=== PATIENT | female | born 1980 | race Caucasian/White ===

== ENCOUNTER 2018-05-06 01:50 | Inpatient (IN) | payer OTHER ==
[2018-05-06] MEDS ORDERED: ACETAMINOPHEN 325 MG TAB PO (04:00)
[2018-05-06] MEDS: SOD CHLORIDE 0.9% 1,000 ML IV (04:20)
[2018-05-06] MEDS: PANTOPRAZOLE (EC) 40 MG TAB PO (05:22)
[2018-05-06 05:42] LABS: ADD MAN DIFF? NO
[2018-05-06 05:51] LABS: ABNORMAL IP MESSAGE 1; BASOPHIL # 0.1 10^3/ul (0.0-0.1); BASOPHILS % 0.6 % (0.0-2.0); EOSINOPHILS # 0.3 10^3/ul (0.0-0.5); EOSINOPHILS % 3.4 % (0.0-7.0); HEMATOCRIT 25.1 % (37.0-47.0); HEMOGLOBIN 7.2 g/dl (12.0-16.0); LYMPHOCYTES # 3.3 10^3/ul (0.8-2.9); LYMPHOCYTES % 38.9 % (15.0-51.0); MEAN CORPUSCULAR HEMOGLOBIN 19.2 pg (29.0-33.0); MEAN CORPUSCULAR HGB CONC 28.7 g/dl (32.0-37.0); MEAN CORPUSCULAR VOLUME 66.9 fl (82.0-101.0); MEAN PLATELET VOLUME 10.8 fl (7.4-10.4); MONOCYTE # 0.9 10^3/ul (0.3-0.9); MONOCYTES % 10.9 % (0.0-11.0); NEUTROPHIL # 3.9 10^3/ul (1.6-7.5); PLATELET COUNT 340 10^3/UL (140-415); RED BLOOD COUNT 3.75 10^6/ul (4.20-5.40); RED CELL DISTRIBUTION WIDTH 21.4 % (11.5-14.5)
[2018-05-06 05:51] LABS: WHITE BLOOD COUNT 8.5 10^3/ul (4.8-10.8)
[2018-05-06 05:55] LABS: POSITIVE DIFF @See below
[2018-05-06 06:14] LABS: ANION GAP 10 (5-13); BLOOD UREA NITROGEN 12 mg/dl (7-20); CALCIUM 9.3 mg/dl (8.4-10.2); CARBON DIOXIDE 24 mmol/L (21-31); CHLORIDE 107 mmol/L (97-110); CREATININE 0.46 mg/dl (0.44-1.00); Estimated GFR > 60 mL/min (>60); GLUCOSE 83 mg/dl (70-220); POTASSIUM 3.8 mmol/L (3.5-5.1); SODIUM 141 mmol/L (135-144)
[2018-05-06] MEDS ORDERED: KETOROLAC 15 MG INJ IV (06:26)
[2018-05-06] MEDS: FERROUS SULFATE (EC) 325 MG TAB PO ×3 (09:00→20:48)
[2018-05-06 10:10] LABS: IMMEDIATE SPIN CROSSMATCH 1 1
[2018-05-06] MEDS: MULTIVITAMINS THERAPEUTIC TAB PO (10:43)
[2018-05-07] MEDS: SOD CHLORIDE 0.9% 1,000 ML IV (04:00)
[2018-05-07 06:42] LABS: ADD MAN DIFF? NO
[2018-05-07] MEDS: PANTOPRAZOLE (EC) 40 MG TAB PO (06:52)
[2018-05-07 06:57] LABS: ABNORMAL IP MESSAGE 1; BASOPHIL # 0.1 10^3/ul (0.0-0.1); BASOPHILS % 0.7 % (0.0-2.0); EOSINOPHILS # 0.2 10^3/ul (0.0-0.5); EOSINOPHILS % 3.5 % (0.0-7.0); HEMOGLOBIN 8.7 g/dl (12.0-16.0); LYMPHOCYTES # 2.1 10^3/ul (0.8-2.9); LYMPHOCYTES % 30.5 % (15.0-51.0); MEAN CORPUSCULAR HEMOGLOBIN 20.1 pg (29.0-33.0); MEAN CORPUSCULAR VOLUME 69.4 fl (82.0-101.0); MEAN PLATELET VOLUME 10.4 fl (7.4-10.4); MONOCYTE # 0.8 10^3/ul (0.3-0.9); MONOCYTES % 11.3 % (0.0-11.0); NEUTROPHIL # 3.7 10^3/ul (1.6-7.5); NEUTROPHILS % 53.7 % (39.0-77.0); PLATELET COUNT 341 10^3/UL (140-415); RED BLOOD COUNT 4.32 10^6/ul (4.20-5.40); RED CELL DISTRIBUTION WIDTH 22.7 % (11.5-14.5)
[2018-05-07 06:57] LABS: WHITE BLOOD COUNT 6.8 10^3/ul (4.8-10.8)
[2018-05-07 07:00] LABS: POSITIVE DIFF @See below
[2018-05-07] MEDS: FERROUS SULFATE (EC) 325 MG TAB PO ×3 (09:00→20:55)
[2018-05-07] MEDS: MULTIVITAMINS THERAPEUTIC TAB PO (09:00)
[2018-05-07 18:34] LABS: IRON 21 ug/dl (35-150)
[2018-05-07 18:43] LABS: % IRON SATURATION 5 % SAT (22-52); TOTAL IRON BINDING CAPACITY 434 ug/dl (241-421)
[2018-05-07 19:41] LABS: FREE T3 3.82 pg/ml (2.77-5.27)
[2018-05-07 19:41] LABS: FREE T4 (FREE THYROXINE) 1.32 ng/dl (0.79-2.35)
[2018-05-07 19:55] LABS: THYROID STIMULATING HORMONE 0.535 MIU/L (0.465-4.680)
[2018-05-08] MEDS: PANTOPRAZOLE (EC) 40 MG TAB PO (05:31)
[2018-05-08] MEDS: FERROUS SULFATE (EC) 325 MG TAB PO ×2 (09:00→13:00)
[2018-05-08] MEDS: MULTIVITAMINS THERAPEUTIC TAB PO (10:26)
[2018-05-08 11:57] LABS: ADD MAN DIFF? NO
[2018-05-08 12:01] LABS: ABNORMAL IP MESSAGE 1; BASOPHIL # 0.1 10^3/ul (0.0-0.1); EOSINOPHILS # 0.2 10^3/ul (0.0-0.5); EOSINOPHILS % 2.9 % (0.0-7.0); HEMATOCRIT 33.7 % (37.0-47.0); HEMOGLOBIN 9.8 g/dl (12.0-16.0); LYMPHOCYTES # 1.5 10^3/ul (0.8-2.9); LYMPHOCYTES % 25.8 % (15.0-51.0); MEAN CORPUSCULAR HEMOGLOBIN 20.1 pg (29.0-33.0); MEAN CORPUSCULAR HGB CONC 29.1 g/dl (32.0-37.0); MEAN CORPUSCULAR VOLUME 69.2 fl (82.0-101.0); MEAN PLATELET VOLUME 10.8 fl (7.4-10.4); MONOCYTE # 0.5 10^3/ul (0.3-0.9); MONOCYTES % 8.4 % (0.0-11.0); NEUTROPHIL # 3.7 10^3/ul (1.6-7.5); NEUTROPHILS % 61.6 % (39.0-77.0); PLATELET COUNT 377 10^3/UL (140-415); RED BLOOD COUNT 4.87 10^6/ul (4.20-5.40); RED CELL DISTRIBUTION WIDTH 24.3 % (11.5-14.5)
[2018-05-08 12:06] LABS: POSITIVE DIFF @See below
[2018-05-09 13:00] LABS: PROLACTIN 7.5 ng/mL
== END 2018-05-08 14:30 | disposition home or self-care (01) | DRG 812 ==
LOC: 2NE 01:50
PROC: 30233N1 Transfusion of Nonautologous Red Blood Cells into Peripheral Vein, Percutaneous Approach (ICD-10-PCS; principal; 2018-05-06)
DX: D62 Acute posthemorrhagic anemia (principal); N92.1 Excessive and frequent menstruation with irregular cycle; D25.0 Submucous leiomyoma of uterus; N83.201 Unspecified ovarian cyst, right side
CPT/HCPCS: 36430; 76856; 80048; 83540; 84146; 84439; 84443; 84481; 85025; 86644; 86850; 86900; 86901; 86920; 87081

== ENCOUNTER 2018-11-12 20:48 | Inpatient (IN) | payer OTHER ==
[2018-11-12 22:13] LABS: WHITE BLOOD COUNT 7.7 10^3/ul (4.8-10.8)
[2018-11-12 22:13] LABS: ABNORMAL IP MESSAGE 1; HEMATOCRIT 24.5 % (37.0-47.0); MEAN CORPUSCULAR HGB CONC 27.8 g/dl (32.0-37.0); MEAN CORPUSCULAR VOLUME 64.8 fl (82.0-101.0); PLATELET COUNT 367 10^3/UL (140-415); RED BLOOD COUNT 3.78 10^6/ul (4.20-5.40); RED CELL DISTRIBUTION WIDTH 17.8 % (11.5-14.5)
[2018-11-12 22:21] LABS: POSITIVE DIFF @See below
[2018-11-12 22:24] LABS: ADD MAN DIFF? YES; HEMOGLOBIN 6.8 g/dl (12.0-16.0)
[2018-11-12 22:36] LABS: INR 0.87; PROTIME 11.9 Sec (11.9-14.9); PT RATIO 0.9
[2018-11-12 22:37] LABS: PARTIAL THROMBOPLASTIN TIME 29.2 Sec (23.0-35.0)
[2018-11-12 22:38] LABS: ALANINE AMINOTRANSFERASE 17 IU/L (13-69); ALBUMIN 4.8 g/dl (3.3-4.9); ALBUMIN/GLOBULIN RATIO 1.26; ALKALINE PHOSPHATASE 56 IU/L (42-121); ANION GAP 11 (5-13); ASPARTATE AMINO TRANSFERASE 15 IU/L (15-46); BILIRUBIN,INDIRECT 0.3 mg/dl (0-1.1); BILIRUBIN,TOTAL 0.3 mg/dl (0.2-1.3); BLOOD UREA NITROGEN 20 mg/dl (7-20); CALCIUM 9.6 mg/dl (8.4-10.2); CARBON DIOXIDE 24 mmol/L (21-31); CHLORIDE 107 mmol/L (97-110); CREATININE 0.54 mg/dl (0.44-1.00); Estimated GFR > 60 mL/min (>60); GLUCOSE 89 mg/dl (70-220); POTASSIUM 3.6 mmol/L (3.5-5.1); SODIUM 142 mmol/L (135-144); TOTAL PROTEIN 8.6 g/dl (6.1-8.1)
[2018-11-12 22:48] LABS: ANISOCYTOSIS 2+ (0-0); BASOPHILS % (M) 1 % (0-2); EOSINOPHILS % (M) 4 % (0-7); ERYTHROBLAST% (NRBC) (M) 1 % (0-0); GIANT THROMBO% (M) 1 % (0-0); HYPOCHROMASIA 3+ (0-0); LYMPHOCYTES % (M) 39 % (15-51); MICROCYTOSIS 2+ (0-0); MONOCYTE #M 0.8 10^3/ul (0.3-0.9); MONOCYTES % (M) 11 % (0-11); PLATELET ESTIMATE NORMAL; POIKILOCYTOSIS 2+ (0-0); POLYCHROMASIA 1+ (0-0); SEGMENTED NEUTROPHILS (M) % 45 % (39-77); SMUDGE%M 12 % (0-0)
[2018-11-12] MEDS: SOD CHLORIDE 0.9% 0 ML IV (23:15)
[2018-11-13] MEDS ORDERED: ONDANSETRON 4 MG INJ IV
[2018-11-13 03:34] LABS: IMMEDIATE SPIN CROSSMATCH 1 5
[2018-11-13] MEDS ORDERED: ACETAMINOPHEN 325 MG TAB PO ×2 (05:00)
[2018-11-13] MEDS: PANTOPRAZOLE (EC) 40 MG TAB PO (06:36)
[2018-11-13] MEDS ORDERED: SOD CHLORIDE 0.9% 1,000 ML IV (07:30)
[2018-11-13 09:32] LABS: ADD MAN DIFF? NO
[2018-11-13 09:35] LABS: ABNORMAL IP MESSAGE 1; BASOPHIL # 0.1 10^3/ul (0.0-0.1); BASOPHILS % 0.4 % (0.0-2.0); EOSINOPHILS # 0.1 10^3/ul (0.0-0.5); EOSINOPHILS % 1.3 % (0.0-7.0); LYMPHOCYTES # 1.4 10^3/ul (0.8-2.9); LYMPHOCYTES % 12.3 % (15.0-51.0); MEAN CORPUSCULAR HEMOGLOBIN 21.1 pg (29.0-33.0); MEAN CORPUSCULAR VOLUME 70.4 fl (82.0-101.0); MONOCYTE # 1.2 10^3/ul (0.3-0.9); MONOCYTES % 10.8 % (0.0-11.0); NEUTROPHIL # 8.4 10^3/ul (1.6-7.5); NEUTROPHILS % 74.8 % (39.0-77.0); PLATELET COUNT 289 10^3/UL (140-415); RED BLOOD COUNT 4.26 10^6/ul (4.20-5.40); RED CELL DISTRIBUTION WIDTH 24.3 % (11.5-14.5)
[2018-11-13 09:35] LABS: WHITE BLOOD COUNT 11.2 10^3/ul (4.8-10.8)
[2018-11-13 09:37] LABS: POSITIVE DIFF @See below
[2018-11-13 12:21] LABS: IRON 222 ug/dl (35-150)
[2018-11-13 12:30] LABS: % IRON SATURATION 52 % SAT (22-52); TOTAL IRON BINDING CAPACITY 425 ug/dl (241-421)
== END 2018-11-13 16:40 | disposition home or self-care (01) | DRG 812 ==
LOC: 2NE 11-13 01:06 → E/R 20:48
PROC: 30233N1 Transfusion of Nonautologous Red Blood Cells into Peripheral Vein, Percutaneous Approach (ICD-10-PCS; principal; 2018-11-12)
DX: D50.9 Iron deficiency anemia, unspecified (principal); D25.9 Leiomyoma of uterus, unspecified
CPT/HCPCS: 36415; 36430; 80053; 83540; 85025; 85610; 85730; 86850; 86900; 86901; 86920; 93005; 99285-25